=== PATIENT | female | born 1985 | race Asian ===

== ENCOUNTER 2020-11-08 05:43 | Inpatient (IN) | payer BC, OTHER ==
[~2020-11-08] VITALS: Ht 160 cm; Wt 76.4 kg
[~2020-11-08 05:43] MED LIST: DOCU-131 PO; IBUP200T49 PO; OXYC-302 PO
[2020-11-08] MEDS ORDERED: ONDANSETRON 2MG/ML, 2ML IVPush ONE (06:00)
[2020-11-08] MEDS ORDERED: METOCLOPRAMIDE 5 MG/ML, 2ML IV ONE (06:00)
[2020-11-08] MEDS ORDERED: SODIUM CITRATE/CITRIC ACID 30 ML UDC PO ONE (06:00)
[2020-11-08] MEDS ORDERED: LACTATED RINGERS 1,000 ML IVBOLUS ONE (06:00)
[2020-11-08] MEDS ORDERED: LACTATED RINGERS 1,000 ML IV SCH (06:00)
[2020-11-08] MEDS ORDERED: CALCIUM CARBONATE 500 MG TAB.CHEW PO PRN (06:00)
[2020-11-08 06:21] LABS: BASOPHILS % (AUTO) 0 % (0-1); EOSINOPHILS % (AUTO) 1 % (1-7); LYMPHOCYTES % (AUTO) 18 % (22-44); MEAN CORPUSCULAR HEMOGLOBIN 32.1 pg (27.0-34.8); MEAN CORPUSCULAR HGB CONC 33.8 g/dL (32.4-35.8); MEAN PLATELET VOLUME 8.2 fL (7.4-10.4); MONOCYTES % (AUTO) 7 % (2-9); NEUTROPHILS % (AUTO) 75 % (42-75); PLATELET COUNT 259 x10^3/uL (130-400); RED BLOOD COUNT 3.95 x10^6/uL (3.82-5.3); RED CELL DISTRIBUTION WIDTH 14.3 % (9.6-15.2)
[2020-11-08 06:22] LABS: MD NO
[2020-11-08] MEDS ORDERED: NEWBORN KIT ONE (07:08)
[2020-11-08] MEDS ORDERED: OXYTOCIN 30U/ 0.9% NaCL 500ML 500 ML ONE (07:52)
[2020-11-08] MEDS ORDERED: SODIUM CITRATE/CITRIC ACID 15 ML UDC ONE (07:52)
[2020-11-08] MEDS ORDERED: METOCLOPRAMIDE 5 MG/ML, 2ML ONE (07:52)
[2020-11-08 08:10] VITALS: BP 116/68
[2020-11-08] MEDS ORDERED: morphine SULFATE/PF 0.5 MG/ML, 10ML ONE (09:12)
[2020-11-08] MEDS ORDERED: SODIUM CHLORIDE 0.9% PF 10ML ONE (09:13)
[2020-11-08] MEDS ORDERED: ONDANSETRON 2MG/ML, 2ML ONE (09:13)
[2020-11-08] MEDS ORDERED: CEFAZOLIN 1,000 MG ONE (09:13)
[2020-11-08] MEDS ORDERED: KETOROLAC 30 MG/1 ML ONE (09:13)
[2020-11-08] MEDS ORDERED: DEXAMETHASONE 4 MG/ML, 1ML ONE (09:13)
[2020-11-08] MEDS ORDERED: OXYTOCIN 10 UNITS/ML, 1ML ONE (09:13)
[2020-11-08] MEDS ORDERED: ACETAMINOPHEN 325 MG TABLET PO PRN (10:30)
[2020-11-08] MEDS ORDERED: SIMETHICONE 80 MG CHEW TAB PO PRN (10:30)
[2020-11-08] MEDS ORDERED: TRANEXAMIC ACID 1,000 MG in SODIUM CHLORIDE 0.9% 100 ML IVPB ONE (10:30)
[2020-11-08] MEDS ORDERED: CARBOPROST TROMETHAMINE 250 MCG/ML, 1ML IM PRN (10:30)
[2020-11-08] MEDS ORDERED: MISOPROSTOL 200 MCG TABLET PR PRN (10:30)
[2020-11-08] MEDS: LACTATED RINGERS 1,000 ML IV SCH ×4 (10:30→20:30)
[2020-11-08] MEDS ORDERED: ONDANSETRON 2MG/ML, 2ML IV PRN (10:30)
[2020-11-08] MEDS ORDERED: OXYcodone IR 5MG TABLET PO PRN ×2 (10:30)
[2020-11-08] MEDS ORDERED: METHYLERGONOVINE 0.2 MG/ML IM PRN (10:30)
[2020-11-08] MEDS: OXYTOCIN 30U/ 0.9% NaCL 500ML 500 ML IV SCH ×2 (11:59→20:30)
[2020-11-08 13:10] VITALS: BP 121/81
[2020-11-08 15:49] VITALS: BP 110/72
[2020-11-08] MEDS: KETOROLAC 30 MG/1 ML IV SCH ×2 (16:49→22:37)
[2020-11-08 18:03] LABS: MEAN CORPUSCULAR HEMOGLOBIN 32.6 pg (27.0-34.8); MEAN CORPUSCULAR HGB CONC 33.9 g/dL (32.4-35.8); MEAN PLATELET VOLUME 8.1 fL (7.4-10.4); PLATELET COUNT 217 x10^3/uL (130-400); RED BLOOD COUNT 3.42 x10^6/uL (3.82-5.3)
[2020-11-08 19:27] LABS: MD YES
[2020-11-08 19:31] LABS: BAND#(MANUAL) 1.21 x10^3/uL; BANDS%(MANUAL) 10 % (0-7); LYMPH#(MANUAL) 1.09 x10^3/uL (1-3.4); LYMPHS% (MANUAL) 9 % (22-44); MONOS#(MANUAL) 0.36 x10^3/uL (0.3-2.7); MONOS% (MANUAL) 3 % (2-9); SEG#(MANUAL) 9.44 x10^3/uL (1.8-6.8); SEGS% (MANUAL) 78 % (42-75)
[2020-11-08 19:32] LABS: <PLATELET ESTIMATE> ADEQUATE; <PLT MORPHOLOGY> NORMAL PLT MORPH; <RBC MORPHOLOGY> NORMAL
[2020-11-08 19:48] VITALS: BP 105/67
[2020-11-08] MEDS: DOCUSATE 100 MG CAPSULE PO PRN (22:37)
[2020-11-09 01:10] VITALS: BP 97/58
[2020-11-09] MEDS: LACTATED RINGERS 1,000 ML IV SCH ×4 (02:30→19:30)
[2020-11-09 04:25] VITALS: BP 102/66
[2020-11-09] MEDS: KETOROLAC 30 MG/1 ML IV SCH ×4 (04:38→22:41)
[2020-11-09] MEDS: OXYTOCIN 30U/ 0.9% NaCL 500ML 500 ML IV SCH ×2 (06:30→19:30)
[2020-11-09 08:00] VITALS: BP 97/61
[2020-11-09] MEDS ORDERED: PRENATAL VIT/IRON/FA 1 EACH TABLET PO SCH (09:00)
[2020-11-09] MEDS: DOCUSATE 100 MG CAPSULE PO PRN ×2 (10:28→22:42)
[2020-11-09 22:35] VITALS: BP 103/68
[2020-11-10] MEDS: OXYTOCIN 30U/ 0.9% NaCL 500ML 500 ML IV SCH (02:30)
[2020-11-10] MEDS: LACTATED RINGERS 1,000 ML IV SCH ×2 (02:45)
[2020-11-10] MEDS: KETOROLAC 30 MG/1 ML IV SCH (04:00)
[2020-11-10] MEDS ORDERED: IBUPROFEN 800 MG TABLET PO PRN ×2 (06:18→10:30)
[2020-11-10 07:30] VITALS: BP 104/67
[2020-11-10] MEDS ORDERED: IBUP-1222 PO (08:25)
[2020-11-10] MEDS ORDERED: OXYC-302 PO (08:25)
== END 2020-11-10 12:40 | disposition home or self-care (01) | DRG 788 ==
LOC: LDIP 05:43 → 2NW 12:17
PROVIDERS: ADMIT Obstetrics & Gynecology; ATTEND Obstetrics & Gynecology
PROC: 10D00Z1 Extraction of Products of Conception, Low, Open Approach (ICD-10-PCS; principal; 2020-11-08)
DX: O34.211 Maternal care for low transverse scar from previous cesarean delivery (principal); O24.424 Gestational diabetes mellitus in childbirth, insulin controlled; Z20.828 Contact with and (suspected) exposure to other viral communicable diseases; Z37.0 Single live birth; Z3A.38 38 weeks gestation of pregnancy; Z88.0 Allergy status to penicillin
CPT/HCPCS: 36415; 82962; 85025; 86592; 86850; 86900; 87635; G0378; J0690; J1100; J1885; J2274; J2405; J2590; J2765; J7120